=== PATIENT | male | born 1960 | race Caucasian/White ===

== ENCOUNTER → 2018-03-03 11:15 | Outpatient (CLI) | payer OTHER, SELFPAY ==
--- NOTE | 2018-03-03 11:24 | RAD_ITS ---
STUDY: X-RAY - RIGHT SHOULDER REASON FOR EXAM: Pain. TECHNIQUE: 4 view(s) of the shoulder. COMPARISON: None. FINDINGS: There is glenohumeral arthrosis with marginal osteophytes of the humeral head, mild to moderate joint space narrowing and subchondral cystic change of the glenoid. Normal acromioclavicular joint. Normal acromion. There is mild cystic change of the lateral humeral head. The soft tissue structures are unremarkable. There is a questionable pulmonary nodule at approximately level of the seventh posterior rib on the internal rotation view, further evaluation with chest x-ray should be considered. RAD/Shoulder min 2 Views IMPRESSION: Glenohumeral arthrosis. Questionable pulmonary nodule of the right lung, further evaluation with chest x-ray should be considered. Electronically Signed: Jose Enrique Delarosa MD at 12:57 EST Tel , Service support ,
--- NOTE | 2018-03-03 11:24 | RAD_ITS ---
STUDY: X-RAY - RIGHT HAND REASON FOR EXAM: Pain. TECHNIQUE: 3 view(s) of the hand. COMPARISON: None. FINDINGS: Normal radiocarpal articulation. Normal distal radioulnar joint. Normal visualized carpal bones. Normal carpal articulations There is moderate joint space narrowing of the carpometacarpal articulation of the thumb. Normal second through fifth carpometacarpal joints. There is chronic healed fracture deformity of the fifth metacarpal neck. Normal metacarpophalangeal joint of the thumb. Normal interphalangeal joint of the thumb. Normal proximal and distal phalanges of the thumb. Normal metacarpophalangeal joints of the second through fifth fingers. Normal proximal and distal interphalangeal joints of the second through fifth fingers. Normal phalanges of the second through fifth fingers. There is a small metallic foreign body, palmar to the base of the second middle phalanx. RAD/Hand Min 3 Views IMPRESSION: Arthrosis of the first carpometacarpal joint. Healed fracture deformity of the fifth metacarpal. Metallic foreign body in the second finger. Electronically Signed: Jose Enrique Delarosa MD at 13:00 EST Tel , Service support ,
== END ==
PROVIDERS: Family Provider Family Medicine; PCP Family Medicine; Referring Provider Family Medicine; Visit Provider Family Medicine
DX: M25.511 Pain in right shoulder (principal); M79.641 Pain in right hand
CPT/HCPCS: 73030; 73130

== ENCOUNTER → 2019-01-18 14:26 | Outpatient (CLI) | payer OTHER, SELFPAY ==
[2019-01-18 15:13] LABS: Hematocrit 48.3 % (40-54); Hemoglobin 16.6 g/dL (13.0-16.5); Mean Corp Hgb Conc 34.4 g/dL (32-36); Mean Corpuscular Hgb 31.1 pg (27.0-32.0); Mean Corpuscular Volume 90.6 fL (80-94); Mean Platelet Vol. 9.9 fl (6.2-12.0); Platelet Count 263 K/mm3 (150-450); RBC Distribution Width CV 12.6 % (11.6-14.6); RBC Distribution Width SD 41.3 fl (35.1-43.9); Red Blood Count 5.33 M/mm3 (4.6-6.2); White Blood Count 9.3 K/mm3 (4.4-11.0)
[2019-01-18 16:13] LABS: AST(SGOT) 48 U/L (15-37); Alanine Aminotransfer ALT/SGPT 85 U/L (16-61); Albumin, Serum 4.2 g/dL (3.2-5.0); Alkaline Phosphatase 58 U/L (45-117); Anion Gap 8 (5-15); BUN 21 mg/dL (7-18); BUN/Creat Ratio 19.3 RATIO (10-20); Calcium,Total 9.2 mg/dL (8.5-10.1); Chloride 103 mmol/L (98-107); Cholesterol 215 mg/dL (200); Creatinine, Serum 1.09 mg/dL (0.70-1.30); EST Glomerular Filtration Rate 74 mL/min (>60); Est Glom Filt Rate - Afr Amer 89 mL/min (>60); Glucose 82 mg/dL (74-106); High Density Lipoprotein 37 mg/dL; Protein, Total 8.2 g/dL (6.4-8.2); Sodium Level 137 mmol/L (136-145); Thyroid Stim Hormone (TSH) 2.94 uIU/mL (0.358-3.74); Triglycerides 187 mg/dL; Very Low Density Lipoprotein 37 mg/dL (5-40)
== END ==
PROVIDERS: Family Provider Family Medicine; PCP Family Medicine; Visit Provider Family Medicine
DX: I10 Essential (primary) hypertension (principal); R53.83 Other fatigue
CPT/HCPCS: 36415; 80053; 80061; 82306; 84403; 84443; 85027

== ENCOUNTER 2019-02-11 22:07 | Emergency (ER) | payer OTHER, SELFPAY ==
[2019-02-11 22:08] VITALS: BP 142/58; PULSE 112; RESP 16; TEMP 36.6; O2SAT 98; BMI 33.7
--- NOTE | 2019-02-11 22:26 | EKG12_ITS ---
Test Reason : GI BLEED Blood Pressure : / mmHG Vent. Rate : 109 BPM Atrial Rate : 109 BPM P-R Int : 116 ms QRS Dur : 092 ms QT Int : 340 ms P-R-T Axes : 039 044 074 degrees QTc Int : 457 ms Sinus tachycardia Nonspecific T wave abnormality Abnormal ECG Confirmed by DM VICTOR, RENATE ([id number]), editor producer CITLALLI VILLAFANA ([id number]) on 02/14/2019 1:02:24 PM Referred By: SUSAN Confirmed By:RENATE CHAIDEZ MD
--- NOTE | 2019-02-11 22:29 | ED.RN ---
NO OLD EKGS IN MUSE
[2019-02-11 22:33] LABS: Absolute Lymphocyte Count 2.57 X10^3/uL (0.83-4.51); Absolute Neutrophil Count 11.8 X10^3/uL (2.0-7.7); Basophil# 0.07 X10^3/uL; Basophil% 0.4 % (0-1); Eosinophil# 0.25 X10^3/uL; Eosinophils% 1.6 % (0-5); Hematocrit 37.5 % (40-54); Hemoglobin 12.9 g/dL (13.0-16.5); Lymphocyte # 2.57 X10^3/ul (4.0); Mean Corp Hgb Conc 34.4 g/dL (32-36); Mean Corpuscular Hgb 31.2 pg (27.0-32.0); Mean Corpuscular Volume 90.8 fL (80-94); Mean Platelet Vol. 9.5 fl (6.2-12.0); Monocyte# 1.24 X10^3/uL; Monocyte% 7.7 % (0-10); NRBC Flagged by Analyzer 0 % (0-5); Neutrophil # 11.78 X10^3/uL (2.7-7.7); Neutrophil % 73.3 % (47-70); Platelet Count 312 K/mm3 (150-450); RBC Distribution Width CV 12.6 % (11.6-14.6); RBC Distribution Width SD 41.8 fl (35.1-43.9); Red Blood Count 4.13 M/mm3 (4.6-6.2); White Blood Count 16.1 K/mm3 (4.4-11.0)
[2019-02-11 22:48] VITALS: BP 122/85; PULSE 107; RESP 16; O2SAT 98
[2019-02-11 22:51] LABS: Anion Gap 9 (5-15); BUN 34 mg/dL (7-18); BUN/Creat Ratio 30.6 RATIO (10-20); Calcium,Total 8.8 mg/dL (8.5-10.1); Chloride 106 mmol/L (98-107); Creatinine, Serum 1.11 mg/dL (0.70-1.30); EST Glomerular Filtration Rate 72 mL/min (>60); Est Glom Filt Rate - Afr Amer 88 mL/min (>60); Estimated Creatinine Clearance 75.81 ml/min; Glucose 151 mg/dL (74-106); Potassium 3.8 mmol/L (3.5-5.1); Sodium Level 137 mmol/L (136-145)
[2019-02-11 22:52] VITALS: BP 102/74; BP 114/90; BP 94/65; PULSE 104; PULSE 120; PULSE 148
--- NOTE | 2019-02-11 23:14 | ED.VIS.GI ---
History of Present Illness Chief Complaint: GI Bleed Narrative: Patient presenting for evaluation secondary to a GI bleed. Patient is never had prior similar episodes like this in the past. Over the course the last 2 days he has had at least 7 episodes of bright red blood per rectum. Patient states that it is gotten to the point where today he suffered 2 syncopal episodes. These were after he went from sitting to standing. Patient states it was associated with lightheadedness and then waking up on the ground. Patient did suffer a lip laceration secondary to the second fall. His tetanus status is unknown. Patient states that over the course of about the last 3 to 4 weeks he has been taking a lot of aspirin for treatment of pain. Patient is not a drinker, not a smoker. He is not on any sort of anticoagulant type medications. He states that he is had some mild right-sided abdominal pain over the course of the last prior couple of days but this seems to have since alleviated. Past Medical History - Allergies and Home Meds Allergies/Adverse Reactions: Allergies No Known Allergies Allergy (Verified 02/11/19 22:28) Primary Care Physician: Jesus Le MD [Primary Care Provider] - Past Medical History: - - Hypertension Lives: Spouse/ Significant Other Smoking Status: Never smoker Alcohol: None Review of Systems All systems negative except as indicated General: Denies: Chills, Fever, Sweats Eyes: Denies: Visual changes - bilaterally, Diplopia ENT: Denies: Rhinorrhea, Sore throat Cardiovascular: Reports: - - Syncope Respiratory: Denies: Dyspnea, Cough, Dyspnea on exertion Gastrointestinal: Reports: Hematochezia Genitourinary: Denies: Dysuria, Hematuria, Frequency Musculoskeletal: Denies: Back pain, Extremity Pain Skin: Reports: Wounds Neurological: Denies: Headache, Weakness, Numbness Physical Exam Vital Signs/Narrative: Vital Signs Temp Pulse Pulse Pulse Pulse Resp BP 02/11/19 22:52 104 H 120 H 148 H 02/11/19 22:48 107 H 16 122/85 H 02/11/19 22:08 97.8 F 112 H 16 142/58 H BP BP BP Pulse Ox 02/11/19 22:52 102/74 114/90 H 94/65 02/11/19 22:48 98 02/11/19 22:08 98 Inital Vital Signs reviewed: Yes General: Well nourished, Well developed, No Acute Distress Head: Normocephalic, Atraumatic Eyes: Negative for: Pale conjunctiva ENT: - - 2 cm full-thickness right lower lip laceration Neck: Supple, Nontender Cardiovascular: Regular rhythm, No murmurs, Tachycardia Respiratory: No distress, CTA bilaterally, Chest nontender Abdomen: Soft, Nontender, Nondistended, Normal bowel sounds Back: Nontender, Normal Inspection Extremities: Nontender, No edema Skin: Normal color, No rash Neurological: Alert, Oriented x3, Cranial nerves II-XII grossly intact, Normal Strength, Normal Sensation Psychological: Normal affect, Normal Mood Diagnostic/Tx/Re-eval - Medical Decision Making Patient presented for evaluation secondary to a GI bleed. Patient's lip laceration was addressed as noted in the procedure note and his tetanus status was updated. Patient was found to have a stable hemoglobin of 12.9, but had multiple episodes of hematochezia while in the emergency department. He was persistently tachycardic, and given his recent increased NSAID use I was concerned for the possibility of an upper GI bleed. NG tube was placed with the assistance of Afrin and aerosolized lidocaine. Initially a small amount of bright red blood was removed, not a large amount, and then coffee grounds were then continued to be removed via low intermittent wall suction. Patient was given 80 mg of IV Protonix. I discussed patient's case on the telephone with covering general surgery Dr. Vazquez. She was concerned that due to the briskness of this patient's bleed that he will require a higher level of care, and requested the patient be transferred. Patient initially requested transfer to [facility] which did not have available beds. He then requested transfer to [facility] which did not have available beds. He then requested transfer to [facility] which did have availability. Patient was transferred by [facility]. Procedures - Lacerations No standard instances Length: 24 in Depth: Skin Shape: Linear Prep: Sterile Conditions Laceration Repair: Lidocaine with epi Irrigated (ml): 250 Comment: Wound was anesthetized with 5 cc of 1% lidocaine with epinephrine. It was copiously irrigated with saline. It was explored for foreign material, this was found to be negative. Patient's wound was then approximated using a single 5-0 Vicryl rapid subcutaneous suture to approximate the wound. Skin sutures were then placed using 4-0 nylon suture. Vermilion border was meticulously approximated, and 2 simple interrupted 4-0 nylon sutures were placed with reasonably good approximation. Patient tolerated this well. Disposition: Transfer Critical care time (excluding procedures): Arranging Admission or Transfer ED Disposition - Plan for ED Patient: Disposition: [facility] Diagnosis: Upper GI bleed Referrals: Jesus Le MD [Primary Care Provider] -
--- NOTE | 2019-02-11 23:59 | RAD_ITS ---
STUDY: X-RAY - ABDOMEN/PELVIS REASON FOR EXAM: Male, 58 years old. NG PLACEMENT TECHNIQUE: Single AP view of the abdomen / pelvis. COMPARISON: None. FINDINGS: Normal visualized lung bases. NG tube is seen, its tip is at the gastric fundus in good position. There is an unremarkable bowel gas pattern. There is no demonstrated free abdominal air. The visualized liver, spleen and kidneys are grossly normal in size and morphology. Normal soft tissue structures. Normal visualized osseous structures. RAD/Abdomen Single View (Portable) IMPRESSION: Normal x-ray examination of the abdomen and pelvis. Electronically Signed: Rodrigo Alvarez, at 2:42 EST Tel , Service support ,
[2019-02-12] MEDS: Lidocaine 4% 5 ML Ampul 2 ML INHALATION (00:19)
[2019-02-12 00:22] VITALS: PULSE 109; RESP 12
[2019-02-12] MEDS: Diphth,Pertuss(Acell),Tet Vac 0.5 ML Vial IM (00:52)
[2019-02-12] MEDS: Oxymetazoline 0.05% 1 SPRAY SPRAY.BTL 2 SPRAY NASAL (00:53)
[2019-02-12 00:59] VITALS: BP 121/87; PULSE 112; RESP 21; O2SAT 99
--- NOTE | 2019-02-12 01:19 | ED.RN ---
DR JESUS PRADO FOR DR PITTMAN
[2019-02-12 01:44] LABS: Hematocrit 34.8 % (40-54); Hemoglobin 11.9 g/dL (13.0-16.5)
[2019-02-12 01:50] VITALS: BP 116/86; PULSE 109; RESP 15; O2SAT 97
[2019-02-12 02:21] VITALS: BP 149/88; PULSE 65; RESP 15; O2SAT 97
[2019-02-12] MEDS: proMETHazine 25 MG/ML Syringe 12.5 MG IV (02:47)
== END 2019-02-12 02:58 | disposition short-term general hospital (02) ==
PROVIDERS: Emergency Provider Emergency Medicine; Family Provider Family Medicine; PCP Family Medicine
DX: K92.1 Melena (principal); S01.511A Laceration without foreign body of lip, initial encounter; I10 Essential (primary) hypertension; Z23 Encounter for immunization; W18.30XA Fall on same level, unspecified, initial encounter; Y93.89 Activity, other specified; Y92.89 Other specified places as the place of occurrence of the external cause; Y99.8 Other external cause status
CPT/HCPCS: 12011; 74018; 80048; 84484; 85014; 85018; 85025; 86850; 86900; 86901; 86920; 86922; 90715; 93005; 94640; 96374; 99285; J7030; J7050; A4216; J3490

== ENCOUNTER → 2019-02-18 10:19 | Outpatient (CLI) | payer OTHER, SELFPAY ==
[2019-02-11 22:08] VITALS: BMI 33.7
[2019-02-18 12:40] LABS: Anion Gap 5 (5-15); BUN 9 mg/dL (7-18); BUN/Creat Ratio 8.9 RATIO (10-20); Calcium,Total 8.2 mg/dL (8.5-10.1); Chloride 108 mmol/L (98-107); Creatinine, Serum 1.01 mg/dL (0.70-1.30); EST Glomerular Filtration Rate 81 mL/min (>60); Est Glom Filt Rate - Afr Amer 98 mL/min (>60); Glucose 124 mg/dL (74-106); Potassium 3.9 mmol/L (3.5-5.1); Sodium Level 138 mmol/L (136-145)
[2019-02-18 12:43] LABS: Hematocrit 28.1 % (40-54); Hemoglobin 9.2 g/dL (13.0-16.5); Mean Corp Hgb Conc 32.7 g/dL (32-36); Mean Corpuscular Hgb 30.5 pg (27.0-32.0); Mean Platelet Vol. 10.3 fl (6.2-12.0); POSITIVE COUNT YES; POSITIVE MORPHOLOGY YES; Platelet Count 198 K/mm3 (150-450); RBC Distribution Width CV 16.2 % (11.6-14.6); RBC Distribution Width SD 49.5 fl (35.1-43.9); Red Blood Count 3.02 M/mm3 (4.6-6.2); White Blood Count 10.4 K/mm3 (4.4-11.0)
[2019-02-18 12:44] LABS: Differential Indicated MANUAL DIFF
[2019-02-18 13:10] LABS: Eosinophil 5 % (0-5); Lymphocyte 18 % (19-41); Metamyelocyte 1 % (0-1); Monocyte 10 % (0-10); Neutrophil-Segmented 64 % (47-70); Platelet Estimate ADEQUATE (ADEQ); Promyelocyte 2 (0-0); Red Cell Morphology NORM C+C NORMAL (NORM C&C); Total Cells Counted 100 (MANUAL DIFF)
[2019-02-18 13:11] LABS: Absolute Neutrophil Count 6.7 X10^3/uL (2.0-7.7)
[2019-02-18 14:25] LABS: Pathologist Review Reviewed
== END ==
PROVIDERS: Family Provider Family Medicine; PCP Family Medicine; Referring Provider Family Medicine; Visit Provider Family Medicine
DX: K92.2 Gastrointestinal hemorrhage, unspecified (principal)
CPT/HCPCS: 36415; 80048; 85025

== ENCOUNTER → 2019-03-23 | Outpatient (CLI) | payer OTHER, SELFPAY ==
[2019-03-23 12:26] LABS: Erythrocyte Sedimentation Rate 16 mm/hr (0-20)
[2019-03-23 12:28] LABS: Hemoglobin 14.1 g/dL (13.0-16.5); Mean Corp Hgb Conc 32.8 g/dL (32-36); Mean Corpuscular Hgb 30.1 pg (27.0-32.0); Mean Corpuscular Volume 91.9 fL (80-94); Platelet Count 274 K/mm3 (150-450); RBC Distribution Width CV 13.8 % (11.6-14.6); RBC Distribution Width SD 46.4 fl (35.1-43.9); Red Blood Count 4.68 M/mm3 (4.6-6.2); White Blood Count 6.4 K/mm3 (4.4-11.0)
[2019-03-23 12:54] LABS: AST(SGOT) 51 U/L (15-37); Alanine Aminotransfer ALT/SGPT 106 U/L (16-61); Alkaline Phosphatase 62 U/L (45-117); Anion Gap 8 (5-15); BUN 16 mg/dL (7-18); BUN/Creat Ratio 15.2 RATIO (10-20); CRP 3.12 mg/L (0.0-3.0); Calcium,Total 9.3 mg/dL (8.5-10.1); Chloride 104 mmol/L (98-107); Creatinine, Serum 1.05 mg/dL (0.70-1.30); EST Glomerular Filtration Rate 77 mL/min (>60); Est Glom Filt Rate - Afr Amer 93 mL/min (>60); Globulin 3.9 g/dL (2.2-4.2); Glucose 123 mg/dL (74-106); Potassium 3.8 mmol/L (3.5-5.1); Protein, Total 7.9 g/dL (6.4-8.2); Rheumatoid Factor < 10.0 IU/mL (<15); Sodium Level 137 mmol/L (136-145); Uric Acid 6.1 mg/dL (3.5-7.2)
[2019-03-24 14:18] LABS: ANTINUCLEAR ANTIBODIES DIRECT Positive (Negative)
== END | disposition home or self-care (01) ==
LOC: MFPLAB 10:04
PROVIDERS: PCP Family Medicine; Referring Provider Family Medicine; Visit Provider Family Medicine
DX: D64.9 Anemia, unspecified (principal); M25.50 Pain in unspecified joint; R74.8 Abnormal levels of other serum enzymes
CPT/HCPCS: 36415; 80053; 84550; 85027; 85652; 86038; 86140; 86431

== ENCOUNTER → 2019-04-18 08:08 | Outpatient (CLI) | payer OTHER, SELFPAY ==
[2019-04-18] VITALS (8 sets, daily range): BP systolic 121–168; BP diastolic 79–113; PULSE 70–79; RESP 12–18; TEMP 36.9; O2SAT 94–98; BMI 34.4
--- NOTE | 2019-04-18 | ASPIGT_PTH ---
PATIENT: WYATT LU LOC: [place] U#:[id number] AGE/SX: 64/M ROOM: RE04/18/[address]: Dr. Tio Le MD : 1960 BED: DIS: SPEC #: [id number] RECD: 04/18/19 10:35 STATUS: SHILPA EDEL #: [id number] LYUDMILA: 04/18/19 00:[address]: Tio Le DEPT: SURGICAL PATHOLOGY RECD BY: Bird Chavez ENTERED: 04/18/19 10:36 SP TYPE: ASP RAD OTHR DR: Tio Le MD Tissues: Muscle of hip, NOS Procedures: FNA Specimen Adequacy Special Stain Group II Surgery Specimen Level IV Imprint (control) HEADER OPERATION: CT-guided left psoas muscle PRE-OP DIAGNOSIS: Psoas abscess TISSUE SUBMITTED: Left psoas muscle MICROSCOPIC DIAGNOSIS Left psoas muscle lesion, CT-guided needle core biopsy: Consistent with organizing hematoma and scar. See comment. AM:jerilyn 04/25/19 COMMENT The specimen is evaluated at the time of biopsy by Dr. Garsia. Immediate Evaluation: Pass 1 - Occasional epithelioid cells and blood (5 touch imprints, 4 DQ, 1 pap). Pass 2 - Occasional epithelioid cells and blood (5 touch imprints, 3 DQ, 2 pap). This case was seen in consultation with Dr. Beasley of [facility]. The complete report is viewable in patient's EMR. Immunohistochemistry ([id number]) supports the above diagnosis. Case has been reviewed in consultation with Dr. Barba who concurs with the above diagnosis. IDC:SJ MICROSCOPIC DESCRIPTION Slides are reviewed. GROSS DESCRIPTION Received is one container labeled with the patient's name and not further designated. The specimen consists of multiple irregular and elongated fragments of light galvez soft tissue that in aggregate measure 1.2 x 0.5 x <0.1 cm. The specimen is totally submitted in one cassette. / AM:jerilyn 04/18/19 TC:5 CPT: 96156, 94501
--- NOTE | 2019-04-18 | IMM_PTH ---
PATIENT: WYATT LU LOC: [place] U#:[id number] AGE/SX: 64/M ROOM: RE04/18/[address]: Dr. Tio Le MD : 1960 BED: DIS: SPEC #: [id number] RECD: 04/19/19 12:31 STATUS: SHILPA EDEL #: [id number] LYUDMILA: 04/18/19 00:[address]: Tio Le DEPT: IMMUNOHISTOCHEMISTRY RECD BY: Yokasta Blas ENTERED: 04/19/19 12:32 SP TYPE: IMMUNO OTHR DR: Tio Le MD Tissues: Muscle of leg, NOS Procedures: MACRO (initial) KI-67 (add) P53 (add) Vimentin (add) Pankeratin (add) PHYSICIAN & INSTITUTION [place] [id number] SPECIMEN INFORMATION: Tissue Source: Left psoas muscle Clinical Info: Psoas abscess Specimen Number: [id number] CPT code: 62014, 84574 x4 METHODOLOGY: Deparaffinized sections of prefer/formalin-fixed tissue or PAP/DQ stained slides are incubated with monoclonal/polyclonal antibodies/oligonucleotide probes. Localization is made via biotin free immunoperoxidase method. Appropriate controls are performed and reacted as expected. Results on target cell population are indicated in the following table: RESULTS: ANTIBODY / CLONE RESULT Macro (HAM-56) positive AE1-3 (AE1/AE3/PCK26) negative Vimentin (V9) positive P53 (DO-7) negative Ki-67 (30-9) negative These tests were developed and their performance characteristics determined by [facility]. They may not have been cleared or approved by the U.S. Food and Drug Administration. The FDA has determined that such clearance or approval is not necessary. The above immunohistochemical/dualISH markers are ordered and reviewed by the Pathologist. INTERPRETATION: Left psoas muscle, CT-guided biopsy: Consistent with organizing hematoma and scar. AM:jerilyn 04/21/19 Case has been reviewed in consultation with Dr. Barba who concurs with the above diagnosis. IDC:ROZ
--- NOTE | 2019-04-18 08:16 | CT_ITS ---
STUDY: CT GUIDED BIOPSY PSOAS MUSCLE LEFT REASON FOR EXAM: Male, 59 years old. LEFT PSOAS ABSCESS BX RADIATION DOSAGE (If Supplied By Facility): CTDIvol = ( 15.2 ) mGy, DLP = ( 293.09 ) mGycm. Individualized dose optimization techniques were used for this CT.? TECHNIQUE: The patient was in the prone position. The overlying skin was prepped and draped in the usual sterile fashion. Conscious sedation was performed. Conscious sedation was started 9:25 AM and terminated at 9:49 AM. The patient was given 1 mg of Versed and 50 mcg of fentanyl intravenously. The patient was independently monitored by the department nurse. Following this, an 18-gauge core biopsy needle was placed into the lesion. 4 18-gauge core biopsies were obtained. The patient tolerated the procedure well. COMPARISON: None. CT/Biopsy/Inj or Needle Placement IMPRESSION: Successful CT-guided percutaneous biopsy of the abnormality in the posterior aspect of the left psoas muscle. Conscious sedation protocol was followed. The patient tolerated procedure well. Electronically Signed: Jay Rankin, at 10:25 EDT , Service support ,
[2019-04-18 08:30] LABS: Hematocrit 45.3 % (40-54); Mean Corp Hgb Conc 33.1 g/dL (32-36); Mean Corpuscular Hgb 29.6 pg (27.0-32.0); Mean Corpuscular Volume 89.5 fL (80-94); Mean Platelet Vol. 9.2 fl (6.2-12.0); Platelet Count 223 K/mm3 (150-450); RBC Distribution Width SD 42.5 fl (35.1-43.9); Red Blood Count 5.06 M/mm3 (4.6-6.2); White Blood Count 6.9 K/mm3 (4.4-11.0)
[2019-04-18 08:44] LABS: International Normalized Ratio 1.1; Partial Thromboplast Time 33.9 Seconds (24.1-36.2); Prothrombin Time (Protime)PT. 13.6 SECONDS (11.7-14.9)
[2019-04-18] MEDS: fentaNYL 100 MCG/2 ML Ampul IV ×2 (09:25→09:45)
[2019-04-18] MEDS: Midazolam 2 MG/2 ML Syringe IV (09:27)
[2019-04-18] MEDS: 0.9% Saline Lock 10 ML Syringe IV (10:13)
== END ==
PROVIDERS: PCP Family Medicine; Referring Provider Family Medicine; Visit Provider Family Medicine
DX: K68.12 Psoas muscle abscess (principal)
CPT/HCPCS: 20206; 36415; 77012; 85027; 85610; 85730; 88172; 88305; 88313; 88341; 88342; 99155; 99156; J7040; A4216

== ENCOUNTER → 2019-04-20 | Outpatient (CLI) | payer OTHER, SELFPAY ==
[2019-04-18 08:49] VITALS: BMI 34.4
--- NOTE | 2019-04-20 09:38 | RAD_ITS ---
STUDY: X-RAY CHEST REASON FOR EXAM: Male, 59 years old. lung nodule seen on imaging study TECHNIQUE: PA and lateral views of the chest. COMPARISON: None. FINDINGS: The lungs are clear and expanded. There is no demonstrated pleural abnormality. Normal size heart. Normal mediastinum and jaylen. Normal visualized pulmonary arteries. Normal visualized aortic arch and descending thoracic aorta. Normal visualized thoracic spine. Normal visualized ribs, clavicles, and shoulders. There is no demonstrated abnormality of the visualized soft tissue structures of the upper abdomen. RAD/Chest PA and Lateral IMPRESSION: Normal x-ray examination of the chest. If Lung nodule it is clinically suspected, CT of the thorax without contrast is recommended for further evaluation. Electronically Signed: Dillon Gordon MD at 22:01 EDT , Service support ,
== END | disposition home or self-care (01) ==
LOC: MTRAD 09:36
PROVIDERS: PCP Family Medicine; Referring Provider Family Medicine; Visit Provider Family Medicine
DX: R91.1 Solitary pulmonary nodule (principal)
CPT/HCPCS: 71046

== ENCOUNTER → 2019-05-09 | Outpatient (CLI) | payer OTHER, SELFPAY ==
[2019-04-18 08:49] VITALS: BMI 34.4
--- NOTE | 2019-05-09 09:10 | MRI_ITS ---
STUDY: MR PELVIS WITHOUT CONTRAST REASON FOR EXAM: Male, 59 years old. hemangioma, hx biopsy mass left psoas muscle /hematoma; pt c/o pain extending from left groin down leg TECHNIQUE: Standardized fat and water weighted pulse sequences were obtained in all 3 orthogonal planes. COMPARISON: Report of CT of the abdomen and pelvis 02/13/2019 FINDINGS: Normal urinary bladder. Normal visualized small intestine. Normal visualized colon. There is no pelvic fluid. There is a 2.0 x 2.8 cm oval T1 hypointense and T2 hyperintense mass in the posterior aspect of the left psoas muscle with circumscribed margins and outlined by fat consistent with a known hemangioma. Normal visualized pelvic arteries. Normal osseous structures. Normal abdominal wall. 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 Electronically Signed: Aram Larsen MD at 14:31 EDT Tel , Service support ,
[2019-05-09 09:22] LABS: Hematocrit 43.6 % (40-54); Hemoglobin 14.4 g/dL (13.0-16.5); Mean Corpuscular Hgb 29.4 pg (27.0-32.0); Mean Platelet Vol. 9.3 fl (6.2-12.0); Platelet Count 211 K/mm3 (150-450); RBC Distribution Width CV 13.1 % (11.6-14.6); RBC Distribution Width SD 42.6 fl (35.1-43.9); White Blood Count 5.8 K/mm3 (4.4-11.0)
--- NOTE | 2019-05-09 09:26 | RAD_ITS ---
STUDY: X-RAY - ORBITS REASON FOR EXAM: Male, 59 years old. MRI CLEARANCE, HX METAL IN EYE TECHNIQUE: 2 view(s) of the orbits were obtained. COMPARISON: None. FINDINGS: Normal bilateral orbits without a metallic orbital foreign body. RAD/Orbits for Foreign Body IMPRESSION: No demonstrated metallic orbital foreign body. The patient is cleared for an MRI examination. Electronically Signed: Danielito Evangelista MD at 10:27 EDT Tel , Service support ,
[2019-05-09 09:41] LABS: AST(SGOT) 66 U/L (15-37); Alanine Aminotransfer ALT/SGPT 125 U/L (16-61); Albumin, Serum 3.9 g/dL (3.2-5.0); Alkaline Phosphatase 58 U/L (45-117); Anion Gap 6 (5-15); BUN 18 mg/dL (7-18); Calcium,Total 9.1 mg/dL (8.5-10.1); Chloride 106 mmol/L (98-107); EST Glomerular Filtration Rate 66 mL/min (>60); Est Glom Filt Rate - Afr Amer 80 mL/min (>60); Globulin 3.8 g/dL (2.2-4.2); Glucose 148 mg/dL (74-106); PSA,Total - Annual Screen 0.37 ng/mL (0.00-4.00); Potassium 3.9 mmol/L (3.5-5.1); Protein, Total 7.7 g/dL (6.4-8.2); Sodium Level 139 mmol/L (136-145)
--- NOTE | 2019-05-09 09:57 | RAD_ITS ---
STUDY: X-RAY - ABDOMEN/PELVIS REASON FOR EXAM: Male, 59 years old. MRI CLEARANCE, HX ABDOMEN SURGERY CLIPS TECHNIQUE: Single AP view of the abdomen / pelvis. COMPARISON: Abdominal x-ray 02/12/2019 FINDINGS: Normal visualized lung bases. There is a general paucity of bowel gas. There is no demonstrated free abdominal air. The visualized liver, spleen and kidneys are grossly normal in size and morphology. Normal soft tissue structures. Normal visualized osseous structures. RAD/Abdomen Single View IMPRESSION: There are no metallic devices or surgical clips seen. Nonspecific bowel gas pattern. Electronically Signed: Narciso Laboy, at 10:38 EDT Tel , Service support ,
== END | disposition home or self-care (01) ==
PROVIDERS: PCP Family Medicine; Referring Provider Family Medicine; Visit Provider Family Medicine
DX: D64.9 Anemia, unspecified (principal); R74.8 Abnormal levels of other serum enzymes; D18.00 Hemangioma unspecified site; Z12.5 Encounter for screening for malignant neoplasm of prostate
CPT/HCPCS: 36415; 70030; 72195; 74018; 80053; 84153; 85027; G0103

== ENCOUNTER → 2019-06-14 | Outpatient (CLI) | payer OTHER, SELFPAY ==
[2019-04-18 08:49] VITALS: BMI 34.4
--- NOTE | 2019-06-14 14:54 | CT_ITS ---
STUDY: CT ABDOMEN AND PELVIS WITH CONTRAST REASON FOR EXAM: Male, 59 years old. HEMANGIOMA LEFT PSOAS MUSCLE -- SHARP PAIN LEFT FLANK RADIATING DOWN LEFT LEG -- GI BLEED 02/2019 W/ SURG RADIATION DOSAGE (If Supplied By Facility): CTDIvol = ( 26.10 ) mGy, DLP = ( 3717.49 ) mGycm TECHNIQUE: Transaxial images were obtained from the dome of the diaphragm to the symphysis pubis without oral contrast. 100CC ISOVUE 370 was administered. Sagittal and coronal images were reconstructed. Individualized dose optimization techniques were used for this CT. COMPARISON: None. FINDINGS: The visualized lung bases are unremarkable. Coronary artery calcification. There is decreased attenuation of the liver consistent with steatosis. The gallbladder is contracted. Normal spleen. Normal pancreas. Normal bilateral adrenal glands. Normal right kidney. Normal left kidney. There is a small hiatal hernia. Normal small intestine. Normal colon. The appendix is visualized and appears normal. Normal abdominal aorta. Normal inferior vena cava. Stable 2.3 cm x 2.4 cm x 3.3 cm hypodense soft tissue nodule with adipose tissue along its margins and inferiorly. This is within the left psoas muscle. This is unchanged. This may represent a teratoma. No abnormal enhancement is seen. Normal urinary bladder. There is a small umbilical hernia containing fat. Normal osseous structures. CT/CT ANGIO ABD&PEL W/O&W/DYE IMPRESSION: Stable examination. 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 Electronically Signed: Jay Rankin, at 15:39 EDT , Service support ,
[2019-06-14 15:11] LABS: CREATININE FINGERSTICK 1.4 mg/dL (0.70-1.30)
== END | disposition home or self-care (01) ==
LOC: CT 14:53
PROVIDERS: PCP Family Medicine; Referring Provider Family Medicine; Visit Provider Family Medicine
DX: D18.00 Hemangioma unspecified site (principal)
CPT/HCPCS: 74174; Q9967

== ENCOUNTER → 2019-09-09 | Outpatient (CLI) | payer OTHER, SELFPAY ==
[2019-04-18 08:49] VITALS: BMI 34.4
[2019-09-09 12:18] LABS: Absolute Lymphocyte Count 1.39 X10^3/uL (0.83-4.51); Absolute Neutrophil Count 4.3 X10^3/uL (2.0-7.7); Basophil# 0.03 X10^3/uL; Basophil% 0.5 % (0-1); Eosinophil# 0.28 X10^3/uL; Eosinophils% 4.3 % (0-5); Hemoglobin 15.3 g/dL (13.0-16.5); Lymphocyte # 1.39 X10^3/ul (4.0); Lymphocyte % 21.3 % (19-41); Mean Corp Hgb Conc 32.6 g/dL (32-36); Mean Corpuscular Hgb 30.7 pg (27.0-32.0); Mean Corpuscular Volume 94.2 fL (80-94); Mean Platelet Vol. 10.4 fl (6.2-12.0); Monocyte# 0.56 X10^3/uL; Monocyte% 8.6 % (0-10); NRBC Flagged by Analyzer 0 % (0-5); Neutrophil # 4.26 X10^3/uL (2.7-7.7); Platelet Count 213 K/mm3 (150-450); RBC Distribution Width CV 13.8 % (11.6-14.6); RBC Distribution Width SD 46.7 fl (35.1-43.9); Red Blood Count 4.99 M/mm3 (4.6-6.2); White Blood Count 6.5 K/mm3 (4.4-11.0)
[2019-09-09 12:28] LABS: Vitamin B12 337 pg/mL (211-911); Vitamin D,25 Hydroxy 31.9 ng/mL
[2019-09-09 12:32] LABS: Iron 67 ug/dL (65-175); Thyroid Stim Hormone (TSH) 2.39 uIU/mL (0.358-3.74)
== END | disposition home or self-care (01) ==
LOC: MFPLAB 10:02
PROVIDERS: PCP Family Medicine; Referring Provider Family Medicine; Visit Provider Family Medicine
DX: R53.83 Other fatigue (principal)
CPT/HCPCS: 36415; 82306; 82533; 82607; 83540; 84403; 84443; 85025

== ENCOUNTER → 2019-09-21 | Outpatient (CLI) | payer OTHER, SELFPAY ==
[2019-04-18 08:49] VITALS: BMI 34.4
--- NOTE | 2019-09-21 16:50 | CT_ITS ---
STUDY: CT BRAIN WITHOUT CONTRAST REASON FOR EXAM: Male, 59 years old. MEMORY LOSS X YEARS RADIATION DOSAGE (If Supplied By Facility): CTDIvol = ( 44.99 ) mGy, DLP = ( 829 ) mGycm TECHNIQUE: Transaxial CT imaging of the brain was performed without administration of intravenous contrast material. Individualized dose optimization techniques were used for this CT. COMPARISON: No relevant priors. FINDINGS: Normal soft tissue structures. Normal calvarium. There is mild cerebral atrophy with widening of the extra-axial spaces and ventricular dilatation. There are areas of decreased attenuation within the white matter tracts of the supratentorial brain, consistent with microvascular disease changes. Normal basal ganglia and thalami. Normal brainstem. Normal cerebellum. There is no intracranial hemorrhage. There are no findings of an acute ischemic infarction. There is a polypoid filling defect of the right maxillary sinus consistent with a mucoid retention cyst. CT/Brain/Head without Contrast IMPRESSION: Chronic involutional changes of the brain. Electronically Signed: Dillon Gordon MD at 18:22 EDT , Service support ,
== END | disposition home or self-care (01) ==
LOC: CT 16:47
PROVIDERS: PCP Family Medicine; Referring Provider Family Medicine; Visit Provider Family Medicine
DX: R41.3 Other amnesia (principal)
CPT/HCPCS: 70450

== ENCOUNTER → 2019-11-30 | Outpatient (CLI) | payer OTHER, SELFPAY ==
[2019-10-11 09:54] VITALS: BMI 34.4
== END | disposition home or self-care (01) ==
LOC: LABSPEC 12:23
PROVIDERS: PCP Family Medicine; Referring Provider Family Medicine; Visit Provider Family Medicine
DX: Z20.828 Contact with and (suspected) exposure to other viral communicable diseases (principal)
CPT/HCPCS: 87635; U0003

== ENCOUNTER 2019-12-16 07:42 | Day surgery (SDC) | payer OTHER, SELFPAY ==
[2019-10-11 09:54] VITALS: BMI 34.4
[2019-12-16 08:01] VITALS: BP 136/89; PULSE 74; RESP 18; TEMP 36.8; O2SAT 100; BMI 32.4
[2019-12-16] MEDS: Lactated Ringers 1,000 ML 100 ML IV (08:21)
--- NOTE | 2019-12-16 09:01 | PCM.HP.BLA ---
Problem List (1) Screening for malignant neoplasm of intestine Status: Acute History and Physical Date of Admission: 12/16/19 ntake Visit Reasons: CSCOPE Chief Complaint: colonoscopy [employer] Required: No Is patient in pain?: No Allergies amoxicillin Adverse Reaction (Intermediate, Verified 10/11/19 09:51) head ache Medications Lisinopril/Hydrochlorothiazide [Lisinopril-Hctz 10-12.5 mg Tab] 1 tab PO DAILY 02/12/19 [History Confirmed 10/11/19] Cyanocobalamin (Vitamin B-12) [Vitamin B-12] 1,000 mcg PO DAILY 09/26/19 [History Confirmed 10/11/19] pantoprazole 40 mg tablet,delayed release 40 mg PO BID tab 10/11/19 [History Confirmed 10/11/19] PFS Medical History Polyarthritis (Acute) Polyarthralgia (Acute) Psoas mass (Acute) Fatigue (Acute) Memory loss (Acute) Primary osteoarthritis, right shoulder (Acute) JENNA (obstructive sleep apnea) (Acute) Osteoarthritis of both hands (Acute) Fatty liver (Acute) MGUS (monoclonal gammopathy of unknown significance) (Chronic) Surgical History History of esophagogastroduodenoscopy (EGD) (Acute) Hx of tonsillectomy (Acute) Family History Grandfather Alzheimers disease Brother Arthritis Myocardial infarction Grandmother Arthritis Grandfather Myocardial infarction Father Gonzalez lung COPD (chronic obstructive pulmonary disease) Mother Hypertension Brain aneurysm Social History (Updated 10/11/19 @ 10:[address] Chuy Sarabia MD) Smoking Status: Never smoker second hand exposure: No alcohol intake: never substance use type: does not use caffeine: Yes frequency: does not exercise HPI HPI HPI: WYATT LU, is a 59 M who presents to the office today for surgical consultation regarding a screening colonoscopy. The patient is referred by Dr. Latisha Toney as the patient has never had a screening colonoscopy. It is of note that he was hospitalized at [facility] March 2019 with an acute upper GI bleed requiring 7 units of blood transfusion secondary to nonsteroidal anti-inflammatory use that he was taking because of left leg and back pain. He currently is not taking any of those medications and that episode has improved. By report the upper scope demonstrated a ulceration which was cauterized. Laboratory as of September 25 performed at the [facility] showed a white count of 8.9 with a hemoglobin 15 hematocrit 44.9 platelet count 230,000. BUN is 13 and creatinine 1.07. On June 14, 2019 at the 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 The patient states that that area was biopsied and he is currently instructed that it will resolve. He has not had any abdominal surgery. He denies any bright red blood per rectum or melena. He denies family history of colon cancer or colon polyps. HPI HPI HPI: WYATT LU, is a 59 M who presents to the office today for ROS General General: No weight change, appetite, fatigue, colon cancer, breast cancer or weakness HEENT HEENT: No difficulty swallowing, eye injury, eye surgery, swollen glands or hoarseness Endo Endocrine: No thyroid disease, diabetes mellitus, thyroid cancer, Hair loss, heat intolerance or cold intolerance Skin Skin: No rash or changing moles Musc Musculoskeletal: Yes arthritis; no back problems, rheumatoid arthritis, gout or joint pain Cardio Cardiovascular: Yes high blood pressure; no murmur, pacemaker, heart disease, atrial fibrillation, heart attack, heart stent, palpitations, shortness of breat with exertion or chest pain Psych Psychiatric: No depression, anxiety or hearing voices Resp Respiratory: No shortness of breath, No sleep apnea, No cough, No COPD, No asthma, No emphysema, No wheezing Gastro Gastrointestinal: No abdominal pain, No nausea or vomiting, No diarrhea, No constipation, No blood in stool, No acid reflux, No hemorrhoids, No ulcers, No gallbladder problem, No black,tarry stools Pola Hematologic: No blood thinners, Yes blood disorders, No bleeding, No anemia, No blood clots Neuro Neurologic: No weakness Exam Const General: cooperative, healthy appearing, comfortable, no acute distress Nutritional Appearance: obese Orientation: alert, awake [facility] Head: normal to inspection Eyes General: appearance normal, both eyes and all related structures Neck Neck: normal visual inspection Resp Effort & Inspection: normal respiratory effort Auscultation: clear to auscultation bilaterally Cardio Rate: regular rate Rhythm: regular rhythm Heart Sounds: no murmurs GI Inspection: normal to inspection Palpation: soft, no hepatosplenomegaly Musc Cervical Spine: normal cervical lordosis Neuro General: alert, awake Cognition: normal cognition Extrem General: no calf tenderness Psych Affect: normal affect Assessment & Plan Problems 1. Screening for malignant neoplasm of intestine Z12.10 Plan I recommended the patient is screening colonoscopy with possible biopsy or polypectomy is indicated. He has never had a previous colonoscopy. He is now aware of the technique, benefit, risk and alternatives. He has had an opportunity to ask and have questions answered. We will schedule and proceed at his discretion. I appreciate the opportunity of assisting with his surgical care. Copy: Dr. Latisha Toney and Dr. Tio Sarabia M.D., F.A.C.S. Coding Level of Care Code 62570 Diagnoses Screening for malignant neoplasm of intestine Z12.10 I have re-examined the patient. There are no clinical changes since date of exam. Procedure Criteria Procedure Type: Elective COVID Risk Discussion: The surgeon/proceduralist and patient have discussed in detail the risk of exposure to and/or potential harm posed by the COVID-19 virus with having a surgery/procedure at this time versus the risk of delaying the surgery/procedure. It is not possible to know either the risk of delaying the surgery or procedure or chance of getting an infection with perfect accuracy, but a joint decision was made between the patient and the surgeon/proceduralist to proceed at this time with the scheduled surgery/procedure as indicated on the consent form.
--- NOTE | 2019-12-16 09:30 | COLBX_PTH ---
PATIENT: WYATT LU LOC: EN U#:[id number] AGE/SX: 59/M ROOM: RE12/16/[address]: Dr. Chuy Sarabia MD : 1960 BED: DIS: 12/16/2019 SPEC #: [id number] RECD: 12/16/19 11:46 STATUS: SHILPA MEDINALeonie #: [id number] LYUDMILA: 12/16/19 09:[address]: Chuy Sarabia DEPT: SURGICAL PATHOLOGY RECD BY: Stacey Allen ENTERED: 12/16/19 12:17 SP TYPE: COLON BX OTHR DR: MD Tio Jacobo MD Tissues: Transverse colon Procedures: Surgery Specimen Level IV HEADER OPERATION: Colonoscopy (MAC) PRE-OP DIAGNOSIS: Screening for malignant neoplasm of intestine TISSUE SUBMITTED: Proximal transverse polyps (2, cold snare and biopsy) MICROSCOPIC DIAGNOSIS Proximal transverse polyps, biopsy: Fragments of colonic mucosa, no pathologic diagnosis. ROZ:jerilyn 12/19/19 MICROSCOPIC DESCRIPTION Slides are reviewed. GROSS DESCRIPTION Received in fixative is one container labeled with the patient's name and designated proximal transverse polyps. The specimen consists of multiple irregular fragments of light galvez soft tissue that in aggregate measure 1 x 0.3 x 0.1 cm. The specimen is totally submitted in one cassette. / ROZ:jerilyn 12/16/19 TC:4 CPT: 86800
[2019-12-16 10:20] VITALS: BP 118/75; BP 136/89; PULSE 75; RESP 18; TEMP 36.2; O2SAT 95
--- NOTE | 2019-12-16 10:20 | OP.COLON_ITS ---
Patient Name: Gerhard Quintanilla Procedure Date: 12/16/2019 9:52 AM Date of : 1960 Age: 59 Procedure: Colonoscopy Indications: Screening for colorectal malignant neoplasm Providers: Chuy Sarabia MD Referring MD: Jesus Le Medicines: See the Anesthesia note for documentation of the administered medications Patient Profile: Last Colonoscopy: none. The patient's first colonoscopy is today. Complications: No immediate complications. Procedure: Pre-Anesthesia Assessment: - Prior to the procedure, a History and Physical was performed, and patient medications and allergies were reviewed. The patient's tolerance of previous anesthesia was also reviewed. The risks and benefits of the procedure and the sedation options and risks were discussed with the patient. All questions were answered, and informed consent was obtained. Prior Anticoagulants: The patient has taken no previous anticoagulant or antiplatelet agents. ASA Grade Assessment: II - A patient with mild systemic disease. After reviewing the risks and benefits, the patient was deemed in satisfactory condition to undergo the procedure. After I obtained informed consent, the scope was passed under direct vision. Throughout the procedure, the patient's blood pressure, pulse, and oxygen saturations were monitored continuously. The Colonoscope was introduced through the anus and advanced to the cecum, identified by appendiceal orifice and ileocecal valve. The colonoscopy was performed without difficulty. The patient tolerated the procedure well. The quality of the bowel preparation was good. The ileocecal valve and the appendiceal orifice were photographed. Scope In: 9:59:09 AM Scope Withdrawal Time 0 hours 8 minutes 28 seconds Scope Out: 10:13:40 AM Total Procedure Duration Time 0 hours 14 minutes 31 seconds Findings: The digital rectal exam findings include non-thrombosed external hemorrhoids, non-thrombosed internal hemorrhoids and internal hemorrhoids that prolapse with straining, but spontaneously regress to the resting position (Grade II). Pertinent negatives include normal prostate (size, shape, and consistency). A 5 mm polyp was found in the proximal transverse colon. The polyp was sessile. The polyp was removed with a cold snare. Resection and retrieval were complete. Scattered diverticula were found in the sigmoid colon. Impression: - Non-thrombosed external hemorrhoids, non-thrombosed internal hemorrhoids and internal hemorrhoids that prolapse with straining, but spontaneously regress to the resting position (Grade II) found on digital rectal exam. - One 5 mm polyp in the proximal transverse colon, removed with a cold snare. Resected and retrieved. - Diverticulosis in the sigmoid colon. Recommendation: - Discharge patient to home. - Resume previous diet. - Continue present medications. - Repeat colonoscopy in 5 years for surveillance based on pathology results. - Telephone my office for pathology results in 1 week. Procedure Code(s): --- Professional --- 51400, Colonoscopy, flexible; with removal of tumor(s), polyp(s), or other lesion(s) by snare technique Diagnosis Code(s): --- Professional --- Z12.11, Encounter for screening for malignant neoplasm of colon K64.1, Second degree hemorrhoids K64.4, Residual hemorrhoidal skin tags D12.3, Benign neoplasm of transverse colon (hepatic flexure or splenic flexure) K57.30, Diverticulosis of large intestine without perforation or abscess without bleeding CPT copyright 2017 [employer]. All rights reserved. The codes documented in this report are preliminary and upon inspector advanced composite review may be revised to meet current compliance requirements. Chuy Sarabia MD 12/16/2019 10:20:05 AM This report has been signed electronically. Number of Addenda: 0 Note Initiated On: 12/16/2019 9:52 AM
--- NOTE | 2019-12-16 10:21 | OP.CCLET_ITS ---
12/16/2019 Jesus Le Md Re : Colonoscopy procedure for Gerhard Ramirezr Mimi This procedure was performed on Monday, December 16, 2019. My impressions and recommendations are as follows: Impressions : - Non-thrombosed external hemorrhoids, non-thrombosed internal hemorrhoids and internal hemorrhoids that prolapse with straining, but spontaneously regress to the resting position (Grade II) found on digital rectal exam. - One 5 mm polyp in the proximal transverse colon, removed with a cold snare. Resected and retrieved. - Diverticulosis in the sigmoid colon. Recommendations : - Discharge patient to home. - Resume previous diet. - Continue present medications. - Repeat colonoscopy in 5 years for surveillance based on pathology results. - Telephone my office for pathology results in 1 week. My findings are described in the full procedure note, which is enclosed. If I can be of further assistance, please feel free to contact me at Doctor phone number(s): Work: . Sincerely, Chuy Sarabia MD 12/16/2019 10:20:05 AM This report has been signed electronically.
[2019-12-16 10:25] VITALS: BP 100/76; BP 136/89; PULSE 71; RESP 20; O2SAT 95
[2019-12-16 10:30] VITALS: BP 110/81; BP 136/89; PULSE 57; RESP 18; O2SAT 95
[2019-12-16 10:44] VITALS: BP 136/89; PULSE 61; RESP 18; TEMP 35.9; O2SAT 96
[2019-12-16 11:20] VITALS: BP 136/89
== END 2019-12-16 11:20 | disposition home or self-care (01) ==
LOC: EN 07:42 → AC 07:43
PROVIDERS: Anesthesiology; PCP Family Medicine; Referring Provider Family Medicine; Visit Provider Surgery
PROC: 0DJD8ZZ Inspection of Lower Intestinal Tract, Via Natural or Artificial Opening Endoscopic (ICD-10-PCS; CPT 45378; principal; 2019-12-16 09:25)
DX: Z12.11 Encounter for screening for malignant neoplasm of colon (principal); K64.1 Second degree hemorrhoids; K57.30 Diverticulosis of large intestine without perforation or abscess without bleeding; K63.5 Polyp of colon; M19.042 Primary osteoarthritis, left hand; M19.041 Primary osteoarthritis, right hand; M19.011 Primary osteoarthritis, right shoulder; I10 Essential (primary) hypertension; E66.9 Obesity, unspecified; Z68.32 Body mass index [BMI] 32.0-32.9, adult; Z79.899 Other long term (current) drug therapy; Z20.828 Contact with and (suspected) exposure to other viral communicable diseases
CPT/HCPCS: 45380; 87426; 87635; 88305; C9803; J7120; J2405; U0003

== ENCOUNTER → 2020-05-14 09:04 | Outpatient (CLI) | payer OTHER, SELFPAY ==
--- NOTE | 2020-05-14 09:17 | RAD_ITS ---
STUDY: X-RAY CHEST REASON FOR EXAM: Male, 60 years old. ABNORMALITY OF LUNG ON CXR TECHNIQUE: PA and lateral views of the chest. COMPARISON: Two-view chest, 04/20/2019. FINDINGS: The lungs are clear and expanded. There is no demonstrated pleural abnormality. Normal size heart. Normal mediastinum and jaylen. Normal visualized pulmonary arteries. Normal visualized aortic arch and descending thoracic aorta. Normal visualized thoracic spine. Normal visualized ribs, clavicles, and shoulders. There is no demonstrated abnormality of the visualized soft tissue structures of the upper abdomen. RAD/Chest PA and Lateral IMPRESSION: No evidence of acute cardiopulmonary pathology. Electronically Signed: Mg Mejia MD at 11:13 EDT Tel , Service support ,
[2020-05-14 10:19] LABS: AST(SGOT) 28 U/L (15-37); Alanine Aminotransfer ALT/SGPT 61 U/L (16-61); Alkaline Phosphatase 70 U/L (45-117); Anion Gap 4 (5-15); BUN 15 mg/dL (7-18); BUN/Creat Ratio 14.9 RATIO (10-20); Calcium,Total 9.2 mg/dL (8.5-10.1); Chloride 104 mmol/L (98-107); Cholesterol 186 mg/dL (200); Creatinine, Serum 1.01 mg/dL (0.70-1.30); EST Glomerular Filtration Rate 80 mL/min (>60); Est Glom Filt Rate - Afr Amer 97 mL/min (>60); Globulin 3.9 g/dL (2.2-4.2); Glucose 90 mg/dL (74-106); High Density Lipoprotein 36 mg/dL; PSA,Total - Annual Screen 0.39 ng/mL (0.00-4.00); Potassium 4.1 mmol/L (3.5-5.1); Protein, Total 7.9 g/dL (6.4-8.2); Sodium Level 136 mmol/L (136-145); Triglycerides 204 mg/dL; Very Low Density Lipoprotein 41 mg/dL (5-40)
[2020-05-14 10:24] LABS: Vitamin B12 448 pg/mL (211-911)
== END ==
PROVIDERS: PCP Family Medicine; Referring Provider Family Medicine; Visit Provider Family Medicine
DX: I10 Essential (primary) hypertension (principal); E53.8 Deficiency of other specified B group vitamins; R91.8 Other nonspecific abnormal finding of lung field; Z12.5 Encounter for screening for malignant neoplasm of prostate
CPT/HCPCS: 36415; 71046; 80053; 80061; 82607; 84153; G0103

== ENCOUNTER → 2021-02-04 | Outpatient (CLI) | payer OTHER, SELFPAY | END | disposition home or self-care (01) | PROVIDERS: PCP Family Medicine; Referring Provider Family Medicine; Visit Provider Family Medicine | DX: U07.1 COVID-19 (principal) | CPT/HCPCS: 87635; U0005; U0003 ==

== ENCOUNTER → 2021-08-28 | Outpatient (CLI) | payer OTHER, SELFPAY ==
[2021-08-28 12:47] LABS: ALB/GLOB Ratio 1.1 RATIO (0.9-2.4); AST(SGOT) 37 U/L (15-37); Alanine Aminotransfer ALT/SGPT 67 U/L (16-61); Albumin, Serum 4.1 g/dL (3.2-5.0); Alkaline Phosphatase 52 U/L (45-117); Anion Gap 8 (5-15); BUN 12 mg/dL (7-18); BUN/Creat Ratio 10.9 RATIO (10-20); Calcium,Total 9.4 mg/dL (8.5-10.1); Chloride 105 mmol/L (98-107); EST Glomerular Filtration Rate 73 mL/min (>60); Est Glom Filt Rate - Afr Amer 88 mL/min (>60); Globulin 3.8 g/dL (2.2-4.2); Glucose 96 mg/dL (74-106); PSA,Total - Annual Screen 0.64 ng/mL (0.00-4.00); Protein, Total 7.9 g/dL (6.4-8.2); Sodium Level 138 mmol/L (136-145)
== END | disposition home or self-care (01) ==
LOC: PAVLAB 11:50
PROVIDERS: PCP Family Medicine; Referring Provider Family Medicine; Visit Provider Family Medicine
DX: R74.8 Abnormal levels of other serum enzymes (principal); Z12.5 Encounter for screening for malignant neoplasm of prostate
CPT/HCPCS: 36415; 80053; 84153; G0103

== ENCOUNTER → 2022-03-10 | Outpatient (CLI) | payer OTHER, SELFPAY ==
--- NOTE | 2022-03-10 09:10 | CDU_ITS ---
Reason For Study: Transient visual loss Rt. Velocities/BP Lt. Velocities/BP Prox CCA 67/20 cm/sec. Prox CCA 97/27 cm/sec. Mid CCA 77/20 cm/sec. Mid CCA 83/20 cm/sec. Dist CCA 73/20 cm/sec. Dist CCA 62/23 cm/sec. Prox ICA 44/16 cm/sec. Prox ICA 66/16 cm/sec. Mid ICA 44/20 cm/sec. Mid ICA 74/27 cm/sec. Dist ICA 70/28 cm/sec. Dist ICA 49/19 cm/sec. Rt. ICA/CCA = 0.9. Lt. ICA/CCA = 0.9. Prox ECA 78/18 cm/sec. Prox ECA 93/16 cm/sec. Rt. Vert. 28/8 cm/sec. Lt. Vert. 36/13 cm/sec. Right Extracranial There is intimal thickening but no significant atherosclerotic plaque noted in the right common carotid artery. There is intimal thickening but no significant atherosclerotic plaque noted in the right internal carotid artery. There is no significant atherosclerotic plaque noted in the right external carotid artery. Antegrade flow is noted in the right vertebral artery. Left Extracranial There is intimal thickening but no significant atherosclerotic plaque noted in the left common carotid artery. There is intimal thickening but no significant atherosclerotic plaque noted in the left internal carotid artery. There is no significant atherosclerotic plaque noted in the left external carotid artery. Antegrade flow is noted in the left vertebral artery. Procedure Carotid Duplex 11033. This is a Carotid Duplex examination using B-mode, color flow and specral Doppler. Exam performed in department. VL/Carotid Duplex Ultrasound Interpretation Summary Normal right extracranial internal carotid. Normal left extracranial internal carotid. Patent and antegrade vertebrals bilaterally. Ordering Physician: Juan Ramon Mckeon Referring Physician: Tio Le Performed By: Myrna Sears, CONNOR, RVT
== END | disposition home or self-care (01) ==
LOC: CVS 09:08
PROVIDERS: PCP Family Medicine; Visit Provider Ophthalmology
DX: H53.123 Transient visual loss, bilateral (principal)
CPT/HCPCS: 93880

== ENCOUNTER → 2022-10-08 | Outpatient (CLI) | payer OTHER, SELFPAY ==
[2022-10-08 18:27] LABS: ALB/GLOB Ratio 1.1 RATIO (0.9-2.4); AST(SGOT) 46 U/L (15-37); Alanine Aminotransfer ALT/SGPT 93 U/L (16-61); Albumin, Serum 3.8 g/dL (3.2-5.0); Alkaline Phosphatase 47 U/L (45-117); Anion Gap 5 (5-15); BUN 18 mg/dL (7-18); Calcium,Total 9.3 mg/dL (8.5-10.1); Chloride 105 mmol/L (98-107); Cholesterol 173 mg/dL (200); Creatinine, Serum 1.06 mg/dL (0.70-1.30); EST Glomerular Filtration Rate 75 mL/min (>60); Est Glom Filt Rate - Afr Amer 91 mL/min (>60); Ferritin 516 ng/mL (26-388); GGTP 69 U/L (15-85); Globulin 3.6 g/dL (2.2-4.2); Glucose 88 mg/dL (74-106); High Density Lipoprotein 33 mg/dL; PSA,Total - Annual Screen 0.67 ng/mL (0.00-4.00); Potassium 3.9 mmol/L (3.5-5.1); Protein, Total 7.4 g/dL (6.4-8.2); Sodium Level 137 mmol/L (136-145); Triglycerides 252 mg/dL; Very Low Density Lipoprotein 50 mg/dL (5-40)
== END | disposition home or self-care (01) ==
PROVIDERS: PCP Family Medicine; Referring Provider Family Medicine; Visit Provider Family Medicine
DX: R74.8 Abnormal levels of other serum enzymes (principal); I10 Essential (primary) hypertension; Z12.5 Encounter for screening for malignant neoplasm of prostate
CPT/HCPCS: 36415; 80053; 80061; 82728; 82977; 84153; G0103

== ENCOUNTER → 2023-02-23 | Outpatient (CLI) | payer OTHER, SELFPAY ==
--- OUTSIDE RECORDS SUMMARY | 2023-02-23 16:32 | XMS RPT_ITS | CCD ---
Author Name Unknown Address [address] [place] [address] Organization [facility] Care Team Providers Care Key Account Representative Name Role Phone Unavailable Primary Care Provider Unavailabl e Medications Current Medications Medication Drug Class(es) Dates Sig (Normalized) Sig (Original) acetaminophen 325 mg oral tablet (1 source) Start: 02-14-2019 acetaminophen (TYLENOL) tablet 650 mg ferrous sulfate 325 mg oral tablet (2 sources) Start: 02-17-2019 take 1 tablet by mouth twice daily at mealtime ferrous sulfate 325 (65 Fe) MG tablet Take 1 tablet by mouth 2 times daily (with meals) 30 tablet 3 02/17/2019 Active Completed/Discontinued Medications Medication Drug Class(es) Dates Sig (Normalized) Sig (Original) calcium gluconate 2 g in dextrose 5 % 100 mL IVPB (2 sources) Start: 02-14-2019 End: 02-14-2019 calcium gluconate 2 g in dextrose 5 % 100 mL IVPB Problems Active Problems Problem Classification Problem Date Documented Da te Episodic/Chronic Gastrointestinal hemorrhage (2 sources) Duodenal ulcer with hemorrhage Chronic Substance-related disorders (2 sources) Finding relating to drug misuse behavior Chronic Past or Other Problems Problem Classification Problem Date Documented Da te Episodic/Chronic Acute posthemorrhagic anemia (2 sources) Acute posthemorrhagic anemia Onset: 0 Episodic Gastrointestinal hemorrhage (4 sources) Blood-tinged feces; Translations: [Hematemesis] Episodic Other gastrointestinal disorders (2 sources) Upper gastrointestinal bleeding Episodic Shock (2 sources) Hemorrhagic shock Episodic Results Test Name Value Interpretation Reference Range Facil ity Vital Signs Date Time Vital Sign Value Performing Clinician Faci lity 02-17-2019 08:38-0500 Body temperature 98.4 [degF] Wyatt Shah MD Work Phone: [facility] Work Phone: 02-17-2019 08:38-0500 Diastolic blood pressure 91 mm[Hg] Wyatt Shah MD Work Phone: [facility] Work Phone: 02-17-2019 08:38-0500 Heart rate 85 /min Wyatt Shah MD Work Phone: [facility] Work Phone: 02-17-2019 08:38-0500 Respiratory rate 17 /min Wyatt Shah MD Work Phone: [facility] Work Phone: 02-17-2019 08:38-0500 SaO2% (BldA) [Mass fraction] 98 % Wyatt Shah MD Work Phone: [facility] Work Phone: 02-17-2019 08:38-0500 Systolic blood pressure 132 mm[Hg] Wyatt Shah MD Work Phone: [facility] Work Phone: 02-16-2019 03:25-0500 Body mass index (BMI) [Ratio] 35.48 kg/m2 Wyatt hSah MD Work Phone: [facility] Work Phone: 02-16-2019 03:25-0500 Body weight 112.17 kg Wyatt Shah MD Work Phone: [facility] Work Phone: 02-13-2019 11:35-0500 Body height 177.8 cm Wyatt Shah MD Work Phone: [facility] Work Phone: Encounters Encounter Date Encounter Type Care Provider Facility Start: 02-12-2019 End: 02-17-2019 Evaluation and management of inpatient Wyatt Shah MD Work Phone: [facility] Procedures Date Procedure Procedure Detail Performing Clinician Start: 02-19-2019 Microscopic examinat ion of blood, culture Plan of Treatment Date Care Activity Detail Author Start: 02-17-2020 Creatinine monitoring Creatinine mon itoring [facility] Work Phone: Start: 02-17-2020 Potassium monitoring Potassium monit oring [facility] Work Phone: Start: 10-10-2018 Influenza vaccination Flu vaccine (# 1) [facility] Work Phone: Start: 2011 Colon cancer screen colonoscopy Colon cancer screen colonoscopy [facility] Work Phone: Start: 2011 Shingles Vaccine (1 of 2) Shingles Vaccine (1 of 2) [facility] Work Phone: Start: 2001 Lipid screen Lipid screen [facility] Work Phone: Start: 1976 HIV screen HIV screen [facility] Work Phone: Start: 1972 DTaP/Tdap/Td vaccine (1 - Tdap) DTaP/Tdap/Td vaccine (1 - Tdap) [facility] Work Phone: Start: 1961 Hepatitis C screen Hepatitis C scree n [facility] Work Phone: Basic metabolic 2000 panel - Serum or Plasma Basic Metabolic Panel Lab Routine Daily until discontinued starting 02/15/2019, 3 completed [facility] Work Phone: Social History Date Type Detail Facility Start: 02-14-2019 Tobacco smoking stat [facility] Never smoker [facility] Work Phone: Start: 02-14-2019 Alcohol intake Current drinke r of alcohol (finding) [facility] Work Phone: Sex Assigned At Not on file [facility] Work Phone: Hospital Discharge instructions 02-17-2019 Discharge Instr - ActivityDischarge Instr - Diet Note Date & Type Note Facility 02-17-2019 Hospital Discharg e instructions Fanta Philip MD - 02/17/2019 10:25 AM EST As tolerated Fanta Philip MD - 02/17/2019 10:25 AM EST ? Good nutrition is important when healing from an illness, injury, or surgery. Follow any nutrition recommendations given to you during your hospital stay. ? If you were given an oral nutrition supplement while in the hospital, continue to take this supplement at home. You can take it with meals, in-between meals, and/or before bedtime. These supplements can be purchased at most local grocery stores, pharmacies, and chain super-stores. ? If you have any questions about your diet or nutrition, call the hospital and ask for the dietitian. No caffiene diet documented in this encounter [facility] Work Phone: History of Present illness Narrative 02-16-2019 Lo Weir MD - 02/16/2019 1:08 PM Deo Menjivar, PT - 02/16/2019 10:40 AM Deo Menjivar, PT - 02/15/2019 2:38 PM Lo Louise MD - 02/15/2019 2:22 PM EST Note Date & Type Note Facility 02-16-2019 History of Present illness Narrative Department of Internal Medicine General Internal Medicine Attending Progress Note SUBJECTIVE: No further bloody bowel movements, passing gas, tolerating full liquids. OBJECTIVE Medications Current Facility-Administered Medications: pantoprazole (PROTONIX) injection 40 mg, 40 mg, Intravenous, BID AND sodium chloride (PF) 0.9 % injection 10 mL, 10 mL, Intravenous, Daily acetaminophen (TYLENOL) tablet 650 mg, 650 mg, Oral, Q4H PRN ferrous sulfate tablet 325 mg, 325 mg, Oral, BID WC promethazine (PHENERGAN) injection 25 mg, 25 mg, Intravenous, Q6H PRN sodium chloride flush 0.9 % injection 10 mL, 10 mL, Intravenous, 2 times per day sodium chloride flush 0.9 % injection 10 mL, 10 mL, Intravenous, PRN sodium chloride flush 0.9 % injection 10 mL, 10 mL, Intravenous, 2 times per day sodium chloride flush 0.9 % injection 10 mL, 10 mL, Intravenous, PRN magnesium hydroxide (MILK OF MAGNESIA) 400 MG/5ML suspension 30 mL, 30 mL, Oral, Daily PRN ondansetron (ZOFRAN) injection 4 mg, 4 mg, Intravenous, Q6H PRN Physical VITALS: BP (!) 151/108 Pulse 86 Temp 98.2 F (36.8 C) (Temporal) Resp 20 Ht 5' 10 (1.778 m) Wt 247 lb 4.8 oz (112.2 kg) SpO2 98% BMI 35.48 kg/m Patient is alert, awake, oriented x 3 No pallor, Icterus No JVD Heart S1 S2 No murmurs Lungs clear to auscultation Abdomen soft non distended no organomegaly No pedal edema No focal neurological deficits Data CBC with Differential: Lab Results Component Value Date WBC 11.7 02/16/2019 RBC 2.56 02/16/2019 HGB 8.0 02/16/2019 HCT 23.2 02/16/2019 PLT 143 02/16/2019 MCV 90.6 02/16/2019 MCH 31.0 02/16/2019 MCHC 34.2 02/16/2019 RDW 14.7 02/16/2019 NRBC 2 02/16/2019 METASPCT 2 02/16/2019 LYMPHOPCT 9.4 02/13/2019 MONOPCT 4 02/16/2019 MYELOPCT 1 02/16/2019 BASOPCT 1 02/16/2019 MONOSABS 0.5 02/16/2019 LYMPHSABS 1.4 02/16/2019 EOSABS 0.1 02/16/2019 BASOSABS 0.1 02/16/2019 BMP: Lab Results Component Value Date NA 138 02/16/2019 K 3.2 02/16/2019 CL 107 02/16/2019 CO2 24 02/16/2019 BUN 7 02/16/2019 LABALBU 2.5 02/14/2019 CREATININE 0.94 02/16/2019 CALCIUM 7.7 02/16/2019 GLUCOSE 79 02/16/2019 ASSESSMENT AND PLAN Acute GI Bleed- no further bleeding, hb stable h&h q6, Gi signed off, on protonix iv bid, will advance to reg diet today. Acute Blood Loss Anemia- 2/2 #1. Hgb stable 7.1 this AM--transfuse if <7.0. Received total of 4units PRBC thus far. BMs slowing down. Leukocytosis- improving, likely reactive, no signs of inf.. dispo- once he tolerates diet and repeat hb stable in am Physical Therapy DC Note Pt up and walking independently around room and unit. Confirmed by RN(Crys) and agree that pt does not requires PT evaluation and treatment. Will sign off at this time and RN agreed. RE-consult if any needs arise. Deo Ford PT, [facility] Physical Therapy Attempt Note PT eval and treatment attempted. Hgb at 6.9. Will hold PT, per department guidelines. Will re-attempt as able. Deo Ford PT, [facility] Department of Internal Medicine General Internal Medicine Attending Progress Note SUBJECTIVE: No new complaints, no further bloody bowel movements. OBJECTIVE Medications Current Facility-Administered Medications: pantoprazole (PROTONIX) injection 40 mg, 40 mg, Intravenous, BID AND sodium chloride (PF) 0.9 % injection 10 mL, 10 mL, Intravenous, Daily 0.9 % sodium chloride bolus, 250 mL, Intravenous, Once acetaminophen (TYLENOL) tablet 650 mg, 650 mg, Oral, Q4H PRN ferrous sulfate tablet 325 mg, 325 mg, Oral, BID WC promethazine (PHENERGAN) injection 25 mg, 25 mg, Intravenous, Q6H PRN sodium chloride flush 0.9 % injection 10 mL, 10 mL, Intravenous, 2 times per day sodium chloride flush 0.9 % injection 10 mL, 10 mL, Intravenous, PRN sodium chloride flush 0.9 % injection 10 mL, 10 mL, Intravenous, 2 times per day sodium chloride flush 0.9 % injection 10 mL, 10 mL, Intravenous, PRN magnesium hydroxide (MILK OF MAGNESIA) 400 MG/5ML suspension 30 mL, 30 mL, Oral, Daily PRN ondansetron (ZOFRAN) injection 4 mg, 4 mg, Intravenous, Q6H PRN Physical VITALS: BP 133/86 Pulse 100 Temp 98.6 F (37 C) (Temporal) Resp 20 Ht 5' 10 (1.778 m) Wt 242 lb 9.6 oz (110 kg) SpO2 98% BMI 34.81 kg/m Patient is alert, awake, oriented x 3 No pallor, Icterus No JVD Heart S1 S2 No murmurs Lungs clear to auscultation Abdomen soft non distended no organomegaly No pedal edema No focal neurological deficits Data CBC with Differential: Lab Results Component Value Date WBC 11.3 02/15/2019 RBC 2.25 02/15/2019 HGB 6.9 02/15/2019 HCT 20.1 02/15/2019 PLT 130 02/15/2019 MCV 90.0 02/15/2019 MCH 30.8 02/15/2019 MCHC 34.3 02/15/2019 RDW 14.6 02/15/2019 NRBC 3 02/15/2019 METASPCT 1 02/15/2019 LYMPHOPCT 9.4 02/13/2019 MONOPCT 5 02/15/2019 MYELOPCT 1 02/15/2019 BASOPCT 0 02/15/2019 MONOSABS 0.6 02/15/2019 LYMPHSABS 2.5 02/15/2019 EOSABS 0.2 02/15/2019 BASOSABS 0.0 02/15/2019 BMP: Lab Results Component Value Date NA 139 02/15/2019 K 3.5 02/15/2019 CL 111 02/15/2019 CO2 21 02/15/2019 BUN 14 02/15/2019 LABALBU 2.5 02/14/2019 CREATININE 0.87 02/15/2019 CALCIUM 7.4 02/15/2019 GLUCOSE 82 02/15/2019 ASSESSMENT AND PLAN Acute GI Bleed- no further bleeding, hb at 6.9, will transfuse prbc, h&h q6, Gi signed off, on protonix iv bid, full liquids today, advance to soft tomorrow Acute Blood Loss Anemia- 2/2 #1. Hgb stable 7.1 this AM--transfuse if <7.0. Received total of 4units PRBC thus far. BMs slowing down. Leukocytosis- improving, likely reactive, no signs of inf.. ICU TRANSFER CHECKLIST Transfer Med Reconciliation (resume home meds if able, convert to PO if able) Complete Antibiotics (name, indication, duration, convert to PO if able) None Steroid (indication, duration, convert to PO if able) None Anticipated [place] Medications (ICU initiated) or Dose Changes and Indication No Permanently Discontinued Home Medications and Reason for medication contraindication No Rosen Catheter (please remove if able) No Central Line (please remove if able) No Transfer Discussed with: Dr. Kramer's service ([facility]) If additional questions for ICU team within 24 hours of ICU transfer, page [phone] for clarifications. Nutrition Assessment Type and Reason for Visit: Initial(ICU Screen) Nutrition Recommendations: 1. Recommend continue on with diet as ordered, advance as tolerated/medically indicated to GI Soft/No gastric stimulants. 2. Monitor adequacy of PO intake. 3. RD to monitor nutrition progression/bowel function, wt, labs, fluid, & follow up weekly. Nutrition Assessment: Pt with PMH including HTN presented with BRBPR, also ended up having hematemesis. S/p transfusion. CTAP negative. GI consulted and pt required emergent scope; EGD: Single duodenal erosion with adherent clot and bleeding visible vessel in the first portion of the duodenum. Injected, treated with bipolar cautery. Clips were placed. Tolerating clear liquids this date. Per chart review, pt had syncopal episode recently, resulted in facial laceration and pt required stitches. Malnutrition Assessment: Malnutrition Status: At risk for malnutrition Context: Acute illness or injury Nutrition Risk Level: High Nutrient Needs: Estimated Daily Total Kcal: 5331-0315 kcal/day Estimated Daily Protein (g): 75-91 gm protein/day Estimated Daily Total Fluid (ml/day): per MD Nutrition Diagnosis: Problem: Predicted suboptimal energy intake Etiology: related to Alteration in GI function ? Signs and symptoms: as evidenced by (Clear liquid diet) Objective Information: Nutrition-Focused Physical Findings: pos I/O (~4L); +BS, small tarry black stool overnight; No edema indicated; medications include PPI; labs: Glucose (129) Wound Type: (R lower lip laceration s/p stitches; Boyd 16) Current Nutrition Therapies: Oral Diet Orders: Clear Liquid Oral Diet intake: (Tolerating per chart review) Oral Nutrition Supplement (ONS) Orders: None ONS intake: (None ordered) Anthropometric Measures: Ht: 5' 10 (177.8 cm) Admission Body Wt: 221 lb 9 oz (100.5 kg)([facility]) % Weight Change: , No weight hx in EPIC [place] Body Wt: 166 lb (75.3 kg), % [place] Body 133% BMI Classification: BMI 30.0 - 34.9 Obese Class I Nutrition Interventions: Continue current diet(Advance as tolerated) Continued Inpatient Monitoring Nutrition Evaluation: Evaluation: Goals set Goals: Pt tolerates & consistently consumes >50% of meals, with tolerance of diet advancement. Monitoring: Nutrition Progression, Meal Intake, Diet Tolerance, Skin Integrity, Weight, Pertinent Labs, Monitor Bowel Function Contact Number: pager [phone] Department of Internal Medicine Gastroenterology Attending Progress Note SUBJECTIVE: 58 y.o. male with significant past medical history of HTN who presented yesterday for evaluation of with bloody BMs. Pt was transferred to the ICU d/t hemodynamic instability and transfused 3U PRBC. EGD yesterday revealed duodenal ulceration with visible vessel which was treated with epi, bipolar cautery and clips. This AM, pt states he is feeling much improved. Following the EGD yesterday pt reports 1 large bloody bowel movement. Since that time he reports no BMs overnight and this morning one medium sized dark red/black BM. Denies any nausea or vomiting. Tolerating a CLD. EGD 02/13/18 Dr. Mccarthy - Normal esophagus. - Normal stomach with no gross inflammation, ulcer or mass lesion. Biopsied. - Single duodenal erosion with adherent clot and bleeding visible vessel in the first portion of the duodenum. Injected. Treated with bipolar cautery. Clips were placed. - Otherwise normal remainder examined duodenum. Medications Current Facility-Administered Medications: calcium gluconate 2 g in dextrose 5 % 100 mL IVPB, 2 g, Intravenous, Once pantoprazole (PROTONIX) 80 mg in sodium chloride 0.9 % 100 mL infusion, 8 mg/hr, Intravenous, Continuous promethazine (PHENERGAN) injection 25 mg, 25 mg, Intravenous, Q6H PRN sodium chloride flush 0.9 % injection 10 mL, 10 mL, Intravenous, 2 times per day sodium chloride flush 0.9 % injection 10 mL, 10 mL, Intravenous, PRN [COMPLETED] Saline lock IV, , , Continuous AND sodium chloride flush 0.9 % injection 3 mL, 3 mL, Intravenous, Q8H sodium chloride flush 0.9 % injection 10 mL, 10 mL, Intravenous, 2 times per day sodium chloride flush 0.9 % injection 10 mL, 10 mL, Intravenous, PRN magnesium hydroxide (MILK OF MAGNESIA) 400 MG/5ML suspension 30 mL, 30 mL, Oral, Daily PRN ondansetron (ZOFRAN) injection 4 mg, 4 mg, Intravenous, Q6H PRN OBJECTIVE VITALS: BP (!) 133/92 Pulse 145 Temp 98.6 F (37 C) (Temporal) Resp 22 Ht 5' 10 (1.778 m) Wt 221 lb 9 oz (100.5 kg) SpO2 100% BMI 31.79 kg/m TEMPERATURE: Current - Temp: 98.6 F (37 C); Max - Temp Av.7 F (36.5 C) Min: 96.2 F (35.7 C) Max: 98.8 F (37.1 C) RESPIRATIONS RANGE: Resp Av.1 Min: 4 Max: 31 PULSE RANGE: Pulse Av.4 Min: 98 Max: 147 BLOOD PRESSURE RANGE: Systolic (24hrs), Av , Min:106 , Max:156 ; Diastolic (24hrs), Av, Min:54, Max:134 PULSE OXIMETRY RANGE: SpO2 Av.8 % Min: 97 % Max: 100 % 24HR INTAKE/OUTPUT: Intake/Output Summary (Last 24 hours) at 02/14/2019 0939 Last data filed at 02/14/2019 0500 Gross per 24 hour Intake 4450 ml Output 2050 ml Net 2400 ml GENERAL: Pleasant and NAD. Pale. On 2L NC oxygen. HEENT: NCAT, PERRLA, EOMI, Scleral anicteric. Oropharhynx clear with no erythema or exudate. Neck supple, no cervical LAD or thyromegaly. CV: RRR, NL S1/S2, no murmurs. Distal pulses palpable and equal b/l. LUNGS: CTA b/l. Normal percussion and palpation. No W/R/R. ABD: + BS, soft, non-tender and non-distended. No hepatosplenomegaly. No mass felt. No rebound or guarding. EXT: No C/C/E. No muscle atrophy. Skin: No skin lesion or breakdown. Lymph: No cervical or supraclavicular LAD. Musculoskeletal: Strength 5/5 in all exts. No joint tenderness or effusions in LEs. Neurologic: A&O x 3, CN II-XII grossly intact. DTR +2 symmetric in patella. Normal cerebellar fxn. Non-focal. Data Recent blood work, radiologic study and endoscopic study were reviewed with the patient. CBC: Recent Labs 02/13/19 0024 02/13/19 0605 02/13/19 1753 02/14/19 0009 02/14/19 0604 WBC 13.5* 13.3* -- -- 21.4* -- RBC 2.82* 2.71* -- -- 2.71* -- HGB 8.9* 8.5* < > 9.5* 8.2* 7.1* HCT 25.9* 24.9* < > 28.0* 24.4* 21.0* MCV 91.9 91.9 -- -- 90.1 -- MCH 31.7 31.5 -- -- 30.4 -- MCHC 34.4 34.2 -- -- 33.7 -- RDW 13.9 13.5 -- -- 14.6* -- PLT 278 227 -- -- 154 -- MPV 7.5 7.5 -- -- 8.2 -- < > = values in this interval not displayed. CMP: Recent Labs 02/12/19 0510 02/13/19 0024 02/13/19 1029 02/14/19 0009 NA 138 139 142 141 K 4.4 4.1 4.4 4.3 CL 108* 113* 115* 117* CO2 20* 20* 19* 18* BUN 32* 29* 32* 28* CREATININE 0.90 0.97 0.93 1.05 GLUCOSE 121* 134* 162* 129* CALCIUM 8.5 8.1* 7.6* 7.7* PROT 6.6 5.7* -- 4.9* LABALBU 3.6 3.0* -- 2.5* BILITOT 0.4 0.6 -- 0.9 ALKPHOS 41 38 -- 28* AST 36 34 -- 28 ALT 57 56 -- 41 PT/INR: Recent Labs 02/12/19 0510 02/13/19 1041 INR 1.1 1.1 ASSESSMENT AND PLAN 1. Acute upper GI bleeding with hematochezia and hematemesis - hgb 8.2 > 7.1 overnight 2. Acute posthemorrhagic anemia 3. Hemorrhagic shock 4. Excessive NSAIDs use Plan: - continue PPI drip x 24 hours then switch to IV BID - clear liquid diet today and tomorrow then advance as tolerated - recommend checking stool h.pylori antigen and treating if positive - recommend avoidance of NSAIDs, discussed with patient - monitor for worsening s/s of GI bleeding and notify GI team - if patient re-bleeds would recommend IR intervention - no further acute GI intervention - The GI/Liver consult service will sign off. Please call if there are any questions, concerns or change of patient's GI condition. Thanks. Patient seen and examined by the attending physician, Dr. Hull. Associated attestation - Marcelo Hull MD - 02/14/2019 5:37 PM EST Attending Supervising Physician s Attestation Statement I have personally performed and participated in all the above services (including HPI and PE). I have reviewed the case with Advance Practice Provider (PETAR), and agreed with the PETAR's assessment and plan as above. The above documentation has been reviewed and amended with the changes I have personally made to reflect the findings of my evaluation. GI bleed S/p EGD + Rx Doing well Marcelo Hull MD 02/14/2019 CRITICAL CARE DAILY PROGRESS NOTE Admit Date: 02/12/2019 PCP: No primary care provider on file. Subjective Interval History: 58 yo M with PMHx HTN who was admitted 02/12/19 with hematemesis/melena, placed on PPI gtt with consulted to GI. Has been taking asa regularly for pain. Morning of 02/13/19 patient had 3 episodes of voluminous, maroon stools with tachycardic, transferred to ICU for emergent scope. Hgb 6.9--Tranfused total 3 units PRBCs. EGD showed: - Normal esophagus. - Normal stomach with no gross inflammation, ulcer or mass lesion. Biopsied. - Single duodenal erosion with adherent clot and bleeding visible vessel in the first portion of the duodenum. Injected. Treated with bipolar cautery. Clips were placed. - Otherwise normal remainder examined duodenum. EVENTS OF LAST 24 HOURS: No acute issues overnight per nursing, only 1 small tarry black stool overnight. Pt currently resting in bed, denies abdominal pain, nausea, vomiting, lightheadedness, dizziness at present. Diet: DIET CLEAR LIQUID; Medications: Scheduled Meds: calcium gluconate IVPB 2 g Intravenous Once sodium chloride flush 10 mL Intravenous 2 times per day sodium chloride flush 3 mL Intravenous Q8H sodium chloride flush 10 mL Intravenous 2 times per day Continuous Infusions: pantoprozole (PROTONIX) infusion 8 mg/hr (02/13/19 1600) Objective: Vitals: BP (!) 133/92 Pulse 145 Temp 98.6 F (37 C) (Temporal) Resp 22 Ht 5' 10 (1.778 m) Wt 221 lb 9 oz (100.5 kg) SpO2 100% BMI 31.79 kg/m Intake/Output Summary (Last 24 hours) at 02/14/2019 0847 Last data filed at 02/14/2019 0500 Gross per 24 hour Intake 4450 ml Output 2050 ml Net 2400 ml Date 02/13/19 07 - 02/14/19 0700 02/14/19 0701 - 02/15/19 0700 Shift 4857-6488 4069-8925 2145-5917 24 Hour Total 0708-4457 1039-2067 5568-8324 24 Hour Total INTAKE I.V. 3500 3500 Blood 650 300 950 Volume (Transfuse RBC) 350 350 Volume (Transfuse RBC) 300 300 Volume (Transfuse RBC) 300 300 Shift Total 650 3800 4450 OUTPUT Urine 758 497 0518 Emesis/NG output 200 200 Stool 300 300 Shift Total 500 663 545 5323 NET 150 2950 -700 2400 Invasive Lines: CVC D#1 (right IJ) Results: CBC: Recent Labs 02/13/19 0605 02/14/19 0009 02/14/19 0604 WBC 13.3* -- 21.4* -- HGB 8.5* < > 8.2* 7.1* PLT 227 -- 154 -- < > = values in this interval not displayed. BMP: Recent Labs 02/13/19 0024 02/13/19 1029 02/14/19 0009 NA 139 142 141 K 4.1 4.4 4.3 CL 113* 115* 117* CO2 20* 19* 18* BUN 29* 32* 28* CREATININE 0.97 0.93 1.05 GLUCOSE 134* 162* 129* Hepatic: Recent Labs 02/13/19 0024 02/14/19 0009 AST 34 28 ALT 56 41 BILITOT 0.6 0.9 ALKPHOS 38 28* Troponin: Recent Labs 02/12/19 0510 TROPONINI <0.012 INR: Recent Labs 02/12/19 0510 02/13/19 1041 INR 1.1 1.1 Lactate: Lab Results Component Value Date LACTA 2.0 02/14/2019 LACTA 2.7 02/13/2019 LACTA 2.6 02/13/2019 Physical Exam Constitutional: Appearance: He is obese. He is diaphoretic. HENT: Head: Normocephalic and atraumatic. Nose: Nose normal. Mouth/Throat: Pharynx: No posterior oropharyngeal erythema. Eyes: General: No scleral icterus. Pupils: Pupils are equal, round, and reactive to light. Neck: Musculoskeletal: Normal range of motion and neck supple. Cardiovascular: Rate and Rhythm: Tachycardia present. Comments: No edema noted Pulmonary: Effort: Pulmonary effort is normal. Comments: CTA throughout lung peters, no use of accessory muscles on NC Abdominal: General: Abdomen is flat. Bowel sounds are normal. Hernia: No hernia is present. Musculoskeletal: Comments: No digital clubbing, no cyanosis,CR<3secs Psychiatric: Comments: A&Ox3. Calm and cooperative. Films: CXR: Results for orders placed during the hospital encounter of 02/12/19 XR CHEST PORTABLE Narrative Patient Name: WYATT LU ---Diagnostic Radiology--- Exam Date/Time 02/13/2019 14:23:56 EST Exam CR Chest Portable Ordering Physician MD MCKEON MICHAEL Accession Number [id number] CPT4 Codes 04874 () Reason For Exam central line insertion Report Indication: Line placement. A frontal view of the chest timed 1400 was obtained with no prior studies available for comparison. There is been placement of a right-sided central line, the tip overlies the region of the superior vena cava. No pneumothorax is seen. The heart is not enlarged. The mediastinum and pulmonary vascularity are within normal limits. Within the limits of the portable technique, the lungs are clear. There are advanced degenerative changes of the right shoulder. Report Dictated on --- Final --- Dictated: 02/13/2019 2:20 pm Dictating Physician: DO MENDOZA ANTHONY Signed Date and Time: 02/13/2019 2:22 pm Signed by: DO MENDOZA ANTHONY Transcribed Date and Time: 02/13/2019 2:20 EGD 02/13/19: - Normal esophagus. - Normal stomach with no gross inflammation, ulcer or mass lesion. Biopsied. - Single duodenal erosion with adherent clot and bleeding visible vessel in the first portion of the duodenum. Injected. Treated with bipolar cautery. Clips were placed. - Otherwise normal remainder examined duodenum. Assessment and Plan: Acute GI Bleed- Improving, Hemodynamically stable. LA normal. EGD as above. Hgb stable 7.1 today--transfuse if down trends <7.0. GI following-->plan on continuing PPI gtt through today, recommend transitioning to PPI BID IVP tomorrow, q6hr H&Hs. Start clear liquid today, if does well advance diet tomorrow. Recommend No aspirin, ibuprofen, naproxen, or other non-steroidal anti-inflammatory drugs for 4 weeks Acute Blood Loss Anemia- 2/2 #1. Hgb stable 7.1 this AM--transfuse if <7.0. Received total of 3units PRBC thus far. BMs slowing down. PPI gtt and avoidance of NSAIDs as above. Leukocytosis- No overt infectious symptoms, Afebrile. WBC 21.4 today (13.3 yest). Bands 3. CXR with no acute processes. Will check blood cx, UA, pct. Hold off on antibx at present--if pct elevate consider treating empirically. NAGMA- chloride 117 after significant resuscitation. BMs now slowing down. DC NS, start clear liquid diet. Tachycardia- 2/2 #1. Improving after EGD intervention and PRBC transfusion. HR now 90s to low 100s. Continue to monitor. Hypocalcemia- replacement ordered, recheck Hx HTN- BP stable with MAPs>65. BP currently 126/66. [employer] on lisinopril 10mg/HCTZ 12.5mg--> will continue to hold today, likely restart tomorrow If BP remains stable. FEN- Start clear liquid diet, DC MIVF. Replace electrolytes prn GI/DVT- PPI gtt, SCDs Debility- PT/OT Code Status- Full code Dispo- Pt improving, hemodynamically stable. No need for further ICU care at this time, will transfer back to floor later today. Plan discussed with Dr. Cai Associated attestation - Julito Marcano MD - 02/14/2019 4:08 PM EST I have personally performed a face to face diagnostic evaluation on this patient. Labs, imaging studies and electronic medical record have been reviewed by me. This note documented and discussed by the []tank house operator helper [x]PETAR reflects my history, exam and medical decision making. I have reviewed and agree with the care plan. Changes were made in the orders as necessary. My history, exam, assessment and plan are as follows. Awake, in bed, appears comfortable Acute blood loss anemia UGI bleed s/p EGD, duodenal erosion with bleeding vessel NAGMA Leukocytosis Check blood cx and procalcitonin HLIV Start clears Med floor status Monitor h/h PHYSICAL EXAM: General Appearance: [x]WDWN []Obese []Cachectic []Thin []ill Skin: Temperature [x]Warm []Cool Rash []Yes []No Tattoo(s) []Yes []No HEENT: Pupils round and react []Yes []No Sclera []Icteric []Non-Icteric Conjunctiva []Injected []Non-Injected Pinnae []Normal []Other Dentitian [][place] Teeth []Dentures []edentulous Oral Mucosa [x][place] [x]Moist []Dry Oral ETT []Present [x]Absent Neck: Trachea midline []Yes []No Thyromegaly []Yes []No Crepitus []Present []Absent Jvd []Present []Absent Lungs: [x]Clear []Crackles []Wheezes [][place] Respiratory effort []Labored [x]Non-Labored Heart: Rate []Regular []Irregular [x]Tachycardia []Bradycardia Rhythm [x]Regular []Irregular Murmur []Present []Absent Peripheral Edema []Present []Absent Abdomen: [x]Soft Bowel Sounds [x]Present []Absent []Tender [x]Non-Tender []Distended []Non-distended Hernia []Present []Absent Organomegaly []Present []Absent []unable to assess 2/2 body habitus []Scar Extremities: Cyanosis []Present []Absent RIBERA ([x]RUE [x]RLE [x]LUE [x]LLE) Neurologic: CIRCLE []Yes []No Corneal reflexes []Present []Absent Plantar reflexes []Up []Down []Absent Withdraws to tactile []Yes []No Follows Commands []Yes []No []Unresponsive to verbal []Cranial nerves grossly intact []Sensation grossly intact Psych: Alert [x]yes []no Oriented []x0 []x1 []x2 []x3 Affect []Normal []Flat []Agitated []Anxious []Calm []Sedated []NAD Pt's EGD today showed: - Normal esophagus. - Normal stomach with no gross inflammation, ulcer or mass lesion. Biopsied. - Single duodenal erosion with adherent clot and bleeding visible vessel in the first portion of the duodenum. Injected. Treated with bipolar cautery. Clips were placed. - Otherwise normal remainder examined duodenum. I suggest that he: - Await pathology results. - No aspirin, ibuprofen, naproxen, or other non-steroidal anti-inflammatory drugs for 4 weeks. - Continue present medications including Protonix IV gtt for now. - Resume clear liquid diet. The findings and recommendations were discussed with patient's family in ICU waiting room. Amador Mccarthy MD CERTIFIED MASSAGE THERAPIST called to see for elevated HR 130-140. B/p 130/70 Pulse ox 100% 2LNC. Pt has passed three large bloody stools since 8 am. A&O on assessment, skin pale,cool, dry. C/O lower abdominal pain minimal at this time. Denies any dizziness but states he does not feel right. Stat labs being drawn. ICU beeped. Dr. Mccarthy in to see pt. Pt transfered to [id number] documented in this encounter [facility] Work Phone: Evaluation note Note Date & Type Note Facility documented in this encounter [facility] Work Phone: Summary Purpose Family History No Family History Records FoundNo Family History Records Found Advance Directives Latest Code Status on File Code Status Date Activated Date Inactivated Comments Full Code 02/13/2019 4:43 PM During GI p rocedure Full Code 02/12/2019 1:01 PM 02/13/2019 4:43 PM Additional Source Comments (unrecognized sect ion and content) No Status Records FoundNo Status Records Found INFORMATION SOURCE (unrecogn ized section and content) DATE CREATED AUTHOR AUTHOR'S ORGANIZ ATION 07/15/2019 [facility] ([place]) Reason for Visit (unrecogniz ed section and content) FOR RECORDS PERTAINING TO PATIENTS WHO ARE OR HAVE BEEN ENROLLED IN A CHEMICAL DEPENDENCY/SUBSTANCEABUSE PROGRAM, SOME INFORMATION MAY BE OMITTED. This clinical summary was aggregated from multiple sources. Caution should be exercised in using it in the provision of clinical care. This summary normalizes information from multiple sources, and as a consequence, information in this document may materially change the coding, format and clinical context of patient data. In addition, data may be omitted in some cases. CLINICAL DECISIONS SHOULD BE BASED ON THE PRIMARY CLINICAL RECORDS. [employer] provides no warranty or guarantee of the accuracy or completeness of information in this document.
[2023-02-23 16:47] LABS: Absolute Lymphocyte Count 2.24 X10^3/uL (0.83-4.51); Absolute Neutrophil Count 7.9 X10^3/uL (2.0-7.7); Basophil# 0.06 X10^3/uL; Basophil% 0.5 % (0-1); Eosinophils% 2.6 % (0-5); Hematocrit 46.8 % (40-54); Hemoglobin 15.6 g/dL (13.0-16.5); Lymphocyte # 2.24 X10^3/ul (0.83-4.51); Lymphocyte % 19.7 % (19-41); Mean Corp Hgb Conc 33.3 g/dL (32-36); Mean Corpuscular Hgb 30.7 pg (27.0-32.0); Mean Corpuscular Volume 92.1 fL (80-94); Mean Platelet Vol. 9.7 fl (6.2-12.0); Monocyte# 0.86 X10^3/uL; Monocyte% 7.6 % (0-10); NRBC Flagged by Analyzer 0 % (0-5); Neutrophil # 7.86 X10^3/uL (2.7-7.7); Neutrophil % 69.2 % (47-70); Platelet Count 288 K/mm3 (150-450); RBC Distribution Width CV 12.6 % (11.6-14.6); RBC Distribution Width SD 42.9 fl (35.1-43.9); Red Blood Count 5.08 M/mm3 (4.6-6.2); White Blood Count 11.4 K/mm3 (4.4-11.0)
[2023-02-23 17:24] LABS: ALB/GLOB Ratio 0.9 RATIO (0.9-2.4); AST(SGOT) 46 U/L (15-37); Alanine Aminotransfer ALT/SGPT 100 U/L (16-61); Albumin, Serum 3.6 g/dL (3.2-5.0); Alkaline Phosphatase 59 U/L (45-117); Anion Gap 5 (5-15); BUN 15 mg/dL (7-18); BUN/Creat Ratio 12.7 RATIO (10-20); Calcium,Total 9.8 mg/dL (8.5-10.1); Chloride 105 mmol/L (98-107); Creatinine, Serum 1.18 mg/dL (0.70-1.30); EST Glomerular Filtration Rate 67 mL/min (>60); Est Glom Filt Rate - Afr Amer 81 mL/min (>60); Globulin 3.9 g/dL (2.2-4.2); Glucose 98 mg/dL (74-106); Protein, Total 7.5 g/dL (6.4-8.2); Sodium Level 137 mmol/L (136-145)
[2023-02-25 14:08] LABS: Albumin 3.8 g/dL (2.9-4.4); Alpha-1-Globulins 0.3 g/dL (0.0-0.4); Alpha-2-Globulins 0.7 g/dL (0.4-1.0); Gamma Globulin 1.4 g/dL (0.4-1.8); Immunoglobulin A 218 mg/dL (61-437); Immunoglobulin G 1376 mg/dL (603-1613); Immunoglobulin M 150 mg/dL (20-172); PROEL- TOTAL PROTEIN 7.2 g/dL (6.0-8.5)
== END | disposition home or self-care (01) ==
LOC: LAB 16:06
PROVIDERS: PCP Family Medicine; Referring Provider Internal Medicine Hematology & Oncology; Visit Provider Internal Medicine Hematology & Oncology
DX: D47.2 Monoclonal gammopathy (principal)
CPT/HCPCS: 36415; 80053; 82784; 84165; 85025; 86334